=== PATIENT | female | born 1970 | race Caucasian/White ===

== ENCOUNTER 2022-03-23 12:13 | Emergency (ER) | payer SELFPAY ==
[~2022-03-23] VITALS: Ht 177.8 cm; Wt 75.0 kg
[2022-03-23 12:22] VITALS: BP 139/92
== END 2022-03-23 16:16 | disposition left against medical advice (07) ==
LOC: ER 12:13
DX: Z48.00 Encounter for change or removal of nonsurgical wound dressing (principal); E06.3 Autoimmune thyroiditis; E03.9 Hypothyroidism, unspecified; Z88.2 Allergy status to sulfonamides
CPT/HCPCS: 99281